=== PATIENT | male | born 1985 | race Two or more races ===

== ENCOUNTER 2020-08-06 18:52 | Emergency (ER) | payer SELFPAY ==
[~2020-08-06] VITALS: Ht 170.2 cm; Wt 99.8 kg
[2020-08-06 19:06] VITALS: BP 117/67
== END 2020-08-06 22:14 | disposition home or self-care (01) ==
LOC: ER 18:56
DX: S00.261A Insect bite (nonvenomous) of right eyelid and periocular area, initial encounter (principal); W57.XXXA Bitten or stung by nonvenomous insect and other nonvenomous arthropods, initial encounter; Y93.89 Activity, other specified; Y92.89 Other specified places as the place of occurrence of the external cause; Y99.8 Other external cause status

== ENCOUNTER 2020-08-12 04:54 | Emergency (ER) | payer SELFPAY ==
[~2020-08-12] VITALS: Ht 170.2 cm; Wt 99.8 kg
[2020-08-12 05:10] VITALS: BP 158/92
== END 2020-08-12 05:49 | disposition home or self-care (01) ==
LOC: ER 04:54
DX: B02.9 Zoster without complications (principal)

== ENCOUNTER 2024-09-06 02:21 | Inpatient (IN) | payer MEDICAID, OTHER ==
[~2024-09-06] VITALS: Ht 172.7 cm; Wt 104.3 kg
[2024-09-06] MEDS: MORPHINE SULFATE 4 MG/ML SYR/VIAL IV ONE (03:29)
[2024-09-06] MEDS: SODIUM CHLORIDE 0.9% 2,000 ML IV ONE (03:29)
[2024-09-06] MEDS: ONDANSETRON HCL 4 MG/2 ML VIAL IV ONE (03:30)
[2024-09-06] MEDS: PANTOPRAZOLE 40 MG/10 ML VIAL INJ IV ONE (03:30)
[2024-09-06 03:36] VITALS: PULSE 116; RESP 16; O2SAT 95
--- NOTE | 2024-09-06 03:36 | DVH ---
Exam: CT CT AB PEL WO CON-NO ORAL OR IV History: upper abd pain n/v Comparison Study: None TECHNIQUE: Multidetector CT of the abdomen and pelvis was performed from lung bases to pubic symphysi s. Imaging was performed without IV contrast. Axial, coronal and sagittal multiplanar reformats were obtained from the axial data set by the technologist. Radiation optimization: All CT scans at this facility use at least one of these dose optimization sage hniques: automated exposure control mA and/or kV adjustment per patient size (includes targeted exam s where dose is matched to clinical indication) or iterative reconstruction. Radiation Dose Information: CT Dose: CTDI volume is 24.64 mGy. Dose-length product is 1417.25 mGy*cm FINDINGS: Evaluation of solid organs is limited due to lack of intravenous contrast use. Imaged portions of the lung bases appear unremarkable. Diffuse hepatic steatosis. Spleen, adrenal glands, and kidneys appear unremarkable. There is edematous appearance of the pancreatic head and proximal body with surrounding fat stranding and fluid. No evidence of pneumatosis or free air. No discrete focal fluid collection. No evidence of bowel obstruction or focal bowel wall thickening. No suspicious osseous lesion. IMPRESSION: 1. Findings consistent with acute pancreatitis.
[2024-09-06] MEDS: HYDROmorphone HCL 2 MG/ML VL/or syr IV ONE (04:16)
--- NOTE | 2024-09-06 04:24 | ED.PDOC ---
History of Present Illness HPI Comments 39-year-old male with history of dyslipidemia and cholecystectomy in June of 2024 brought in by family complaining of upper abdominal pain, nausea and vomiting that started around 1:00 a.m.. He denies any fever, constipation, diarrhea or dysuria. He states the pain is severe, sharp, and radiating to his back. He denies chest pain or shortness a breath. Chief Complaint: Abdominal Pain Time Seen by MD: 04:15 Primary Care Provider: NONE Reviewed Notes: Nurses Notes, Educational Advisor Notes, Medications, Allergies Allergies: Coded Allergies: NO KNOWN ALLERGIES (Unverified , 08/12/20) Information Source: Patient, Emergency Med Personnel Mode of Arrival: EMS Severity: Moderate Timing: Hours Duration: Since onset Prehospital treatment: 12 Lead EKG, Accucheck, Edi Manager, Pain Meds (1g Tylenol ), Other (IV access ) Past Medical History PAST MEDICAL HISTORY: High Lipids Surgical History: Cholecystectomy Family History Family History: Unknown Social History Smoker: Non-Smoker Alcohol: Occasionally Drugs: Denies Drug Use Lives In: Home All Other Systems: Reviewed and Negative (Comprehensive systems review obtained and negative except for what is stated in the HPI.) Physical Exam General Appearance: Moderate Distress, Obese HEENT: Other (Pupils and face symmetric. Moist mucous membranes.) Neck: Full Range of Motion, Normal Inspection Respiratory: Lungs Clear, No Accessory Muscle Use, No Respiratory Distress, Normal Breath Sounds Cardiovascular: No Edema, No JVD, Regular Rate/Rhythm Breast Exam: Deferred Gastrointestinal: Epigastric, Tenderness Genitalia: Deferred Pelvic: Deferred Rectal: Deferred Extremities: Normal inspection, Normal range of motion, Non-tender, No pedal edema Neurologic: Alert (Oriented x4), Normal Affect, Normal Mood, Other (Ambulatory) Cerebellar Function: NOT DONE Reflexes: NOT DONE Skin: Dry, Pallor, Warm Lymphatic: NOT DONE Was a procedure done? Was a procedure done?: No Differential Dx Considerations may include: Gastritis, gastroenteritis, pancreatitis, diverticulitis, appendicitis, UTI, electrolyte imbalance, hypovolemia, ischemic bowel, among others X-Ray, Labs, Meds, VS Vital Signs Date Time Temp Pulse Resp B/P (MAP) Pulse Ox O2 Delivery O2 Flow Rate FiO2 09/06/24 04:16 110 20 165/110 09/06/24 03:36 116 16 95 Room Air* 0 21 09/06/24 03:34 99.1 116 16 166/104 (124) 95 99.1 09/06/24 03:29 116 16 166/104 09/06/24 02:27 99.0 123 20 162/87 (112) 95 99.0 Lab Test 09/06/24 03:15 Range/Units White Blood Count Pending Red Blood Count Pending Hemoglobin Pending Hematocrit Pending Mean Corpuscular Volume Pending Mean Corpuscular Hemoglobin Pending Mean Corpuscular Hemoglobin Concent Pending Red Cell Distribution Width Pending Platelet Count Pending Mean Platelet Volume Pending Neutrophils (%) (Auto) Pending Lymphocytes (%) (Auto) Pending Monocytes (%) (Auto) Pending Basophils (%) (Auto) Pending Neutrophils # (Auto) Pending Lymphocytes # (Auto) Pending Monocytes # (Auto) Pending Sodium Level 137 136-145 mmol/L Potassium Level 3.8 3.5-5.1 mmol/L Chloride Level 101 98-107 mmol/L Carbon Dioxide Level 25 20-31 mmol/L Anion Gap 11 5-15 Blood Urea Nitrogen 10 9-23 mg/dL Creatinine 0.90 0.700-1.30 mg/dL Glomerular Filtration Rate Calc 111 >90 mL/min BUN/Creatinine Ratio 11.1 10.0-20.0 Serum Glucose 161 H 74-106 mg/dL Lactic Acid Level 1.9 0.4-2.0 mmol/L Calcium Level 9.4 8.7-10.4 mg/dL Total Bilirubin 2.0 H 0.2-1.0 mg/dL Aspartate Amino Transferase (AST) 983 H 13-40 U/L Alanine Aminotransferase (ALT) 1190 H 7-40 U/L Alkaline Phosphatase 191 H 46-116 U/L Total Protein 7.8 5.7-8.2 g/dL Albumin 4.8 3.2-4.8 g/dL Lipase > 3500 H 12-53 U/L Current Medications Medications (Trade) Dose Ordered Sig/Miguel Ángel Route Start Time Stop Time Status Last Admin Morphine Sulfate 4 mg ONCE ONCE IV 09/06/24 03:00 09/06/24 03:01 DC 09/06/24 03:29 Ondansetron HCl (Zofran) 4 mg ONCE ONCE IV 09/06/24 03:00 09/06/24 03:01 DC 09/06/24 03:30 Sodium Chloride 2,000 ml @ 1,000 mls/hr Q2H ONCE IV 09/06/24 03:00 09/06/24 04:59 DC 09/06/24 03:29 Pantoprazole Sodium (Protonix) 40 mg ONCE ONCE IV 09/06/24 03:00 09/06/24 03:01 DC 09/06/24 03:30 Hydromorphone HCl (Dilaudid Injection) 1 mg ONCE ONCE IV 09/06/24 04:15 09/06/24 04:16 DC 09/06/24 04:16 [place] [id number] Ph: [phone] DIAGNOSTIC IMAGING Diagnostic Imaging Report : [id number] Signed PATIENT: SCOOBY GUAN ACCT: [id number] UNIT: [id number] : 1985 LOC: ER ROOM / BED: / AGE / SEX: 39 / M ADM STATUS: REG ER SERVICE [id number] ORDERING PHYSICIAN: CHERIE HARRIS MD PROCEDURE(s): ABPL - CT AB PEL WO CON-NO ORAL OR IV REASON: upper abd pain n/v ORDER NUMBER(s): [id number], ACCESSION NUMBER(s): [id number] Exam: CT CT AB PEL WO CON-NO ORAL OR IV History: upper abd pain n/v Comparison Study: None TECHNIQUE: Multidetector CT of the abdomen and pelvis was performed from lung bases to pubic symphysis. Imaging was performed without IV contrast. Axial, coronal and sagittal multiplanar reformats were obtained from the axial data set by the technologist. Radiation optimization: All CT scans at this facility use at least one of these dose optimization techniques: automated exposure control mA and/or kV adjustment per patient size (includes targeted exams where dose is matched to clinical indication) or iterative reconstruction. Radiation Dose Information: CT Dose: CTDI volume is 24.64 mGy. Dose-length product is 1417.25 mGy*cm FINDINGS: Evaluation of solid organs is limited due to lack of intravenous contrast use. Imaged portions of the lung bases appear unremarkable. Diffuse hepatic steatosis. Spleen, adrenal glands, and kidneys appear unremarkable. There is edematous appearance of the pancreatic head and proximal body with surrounding fat stranding and fluid. No evidence of pneumatosis or free air. No discrete focal fluid collection. No evidence of bowel obstruction or focal bowel wall thickening. No suspicious osseous lesion. IMPRESSION: 1. Findings consistent with acute pancreatitis. ATED BY: BRUCE HILL MD DICTATED DATE/TIME: 09/06/24333 SIGNED BY: BRUCE HILL MD SIGNED DATE/TIME: 09/06/24333 CC: X-Ray, Labs, Meds, VS Comment 39-year-old male with a history of dyslipidemia and status post cholecystectomy in June 2024 complaining of upper abdominal pain. Patient states he heavily consumes alcohol on the weekends. Vitals remarkable for heart rate 123, BP 162/87 Exam remarkable for epigastric tenderness to palpation Rhythm strip independently interpreted by me: Sinus tach, rate 123, no ectopy. CT abdomen and pelvis Consistent with acute pancreatitis CBC results pending, CMP remarkable for AST 983, ALT 1190, alkaline phos 191, lipase [place] [id number] Patient treated with the following in the ED: 1 L 0.9 normal saline IV bolus, morphine 4 mg IV, Zofran 4 mg IV, Dilaudid 1 mg IV with partial improvement of his pain. Plan is to admit the patient for GI evaluation. Time of 1ST Reevaluation: 04:45 Reevaluation 1ST: Unchanged Time of 2ND Reevaluation: 05:09 Reevaluation 2ND: Improved Patient Education/Counseling: Diagnosis, Treatment, Other (need for admission ) Family Education/Counseling: No Family Present Departure 1 Departure Time of Disposition: 05:09 Impression: Primary Impression: Acute pancreatitis Qualified Codes: K85.90 - Acute pancreatitis without necrosis or infection, unspecified Disposition: 09 ADMITTED INPATIENT Admit to: Tele Condition: Guarded Critical Care Note Critical Care Time?: No Stability Stability form required: No Heart Score Heart Score: Heart Score Response (Comments) Value History N/A 0 EKG N/A 0 Age N/A 0 Risk Factors N/A 0 Troponin N/A 0 Total 0 I personally scribed for CHERIE HARRIS MD ([email or web address]) on 09/06/24 at 04:24. Electronically submitted by Ean Page ([email or web address]). I personally scribed for CHREIE HARRIS MD ([email or web address]) on 09/06/24 at 04:54. Electronically submitted by Ean Page ([email or web address]). CHERIE HRARIS MD September 06, 2024 04:24
[2024-09-06 04:46] LABS: Anion Gap 11 (5-15); BUN/Creatinine Ratio 11.1 (10.0-20.0); Blood Urea Nitrogen 10 mg/dL (9-23); Carbon Dioxide 25 mmol/L (20-31); Chloride 101 mmol/L (98-107); Glucose 161 mg/dL (74-106); Potassium 3.8 mmol/L (3.5-5.1); Sodium 137 mmol/L (136-145)
[2024-09-06 04:47] LABS: Alanine Aminotransferase 1190 U/L (7-40); Albumin 4.8 g/dL (3.2-4.8); Alkaline Phosphatase 191 U/L (46-116); Aspartate Aminotransferase 983 U/L (13-40); Calcium 9.4 mg/dL (8.7-10.4); Lipase > 3500 U/L (12-53); Total Protein 7.8 g/dL (5.7-8.2)
[2024-09-06 07:47] LABS: Basophils # (auto) 0 10 ^3/uL (0-0.2); Basophils % (auto) 0.1 % (0.0-2.0); Eosinophils # (auto) 0 10 ^3/uL (0-0.8); Hematocrit 47.9 % (41.0-53.0); Hemoglobin 16.4 g/dL (13.5-17.5); Lymphocytes # (auto) 0.4 10 ^3/uL (0.4-5.4); Lymphocytes % (auto) 3.3 % (10.0-50.0); Mean Corpuscular Hemoglobin 29.8 pg (28.0-32.0); Mean Corpuscular Hgb Conc. 34.2 g/dL (32.0-36.0); Mean Corpuscular Volume 87.2 fL (80.0-100.0); Monocytes # (auto) 0.6 10 ^3/uL (0-1.3); Monocytes % (auto) 4.5 % (0.0-12.0); Neutrophils % (auto) 92.1 % (37.0-80.0); Nucleated Red Blood Cells % 0.1 %; Platelet Count (auto) 316 10^3/uL (140-450); Red Blood Cells 5.49 10^6/uL (4.5-5.90); Red Cell Distribution Width 14.9 % (11.8-14.3); White Blood Cell 13.1 10^3/uL (4.4-10.8)
[2024-09-06 07:54] VITALS: PULSE 101; RESP 18; O2SAT 94
[2024-09-06] MEDS ORDERED: ROSU40TA47 PO (07:56)
--- NOTE | 2024-09-06 07:57 | DVHHP2 ---
History of Present Illness Reason for Visit: Abdominal pain with nausea and vomiting History of Present Illness Iraj Nesbitt is a 39-year-old male with past medical history of hyperlipidemia and cholecystectomy who presents to the ED with abdominal pain, nausea, and vomiting that started yesterday. Patient reports that he was at a green party Thursday but believes it is unrelated to his symptoms. Patient reports the abdominal pain 10/10, tight, and constant in nature. He also reports that he was and has been drinking alcohol. He states only as occasionally. Patient denies any chest pain, shortness of breath, fever, chills, lightheadedness, weakness, dizziness, diarrhea, or dysuria. He also reports that he has been noncompliant with his cholesterol medication. Patient reports that he does not use home oxygen however upon examination patient is on nasal cannula. Cardiovascular: hyperipidemia Past Surgical History: Cholecystectomy Family History: Other (Mom ) Smoke: No ALCOHOL: occassional Drugs: None Lives: with Family Domestic Violence: Neg Review of Systems Gastrointestinal: Nausea, Vomiting, Abdominal Pain Allergies: Coded Allergies: NO KNOWN ALLERGIES (Unverified , 08/12/20) Exam Vital Signs Vital Signs Date Time Temp Pulse Resp B/P (MAP) Pulse Ox O2 Delivery O2 Flow Rate FiO2 09/06/24 07:54 98.9 101 18 156/100 (118) 94 98.9 09/06/24 07:54 Nasal Cannula* 4 36 General Appearance: Alert, Oriented X3, Cooperative, mild distress HEENT: Atraumatic, PERRLA, EOMI, Mucous membr. moist/pink Respiratory: Clear to auscultation, Normal air movement Cardiovascular: Normal S1, Normal S2, No murmurs Abdominal: Soft Extremities: No clubbing, No cyanosis, No edema, Normal pulses, No tenderness/swelling Skin: No significant lesion Neuro: Normal speech, Strength at / X4 ext, Normal tone, Sensation intact Psych/Mental Status: Mental status NL, Mood NL Labs/Xrays Labs Test 09/06/24 07:26 09/06/24 03:15 Range/Units White Blood Count 13.1 H 4.4-10.8 10^3/uL Red Blood Count 5.49 4.5-5.90 10^6/uL Hemoglobin 16.4 13.5-17.5 g/dL Hematocrit 47.9 41.0-53.0 % Mean Corpuscular Volume 87.2 80.0-100.0 fL Mean Corpuscular Hemoglobin 29.8 28.0-32.0 pg Mean Corpuscular Hemoglobin Concent 34.2 32.0-36.0 g/dL Red Cell Distribution Width 14.9 H 11.8-14.3 % Platelet Count 316 140-450 10^3/uL Mean Platelet Volume 9.3 6.9-10.8 fL Neutrophils (%) (Auto) 92.1 H 37.0-80.0 % Lymphocytes (%) (Auto) 3.3 L 10.0-50.0 % Monocytes (%) (Auto) 4.5 0.0-12.0 % Eosinophils (%) (Auto) 0.0 0.0-7.0 % Basophils (%) (Auto) 0.1 0.0-2.0 % Neutrophils # (Auto) 12.0 H 1.6-8.6 10 ^3/uL Lymphocytes # (Auto) 0.4 0.4-5.4 10 ^3/uL Monocytes # (Auto) 0.6 0-1.3 10 ^3/uL Eosinophils # (Auto) 0 0-0.8 10 ^3/uL Basophils # (Auto) 0 0-0.2 10 ^3/uL Nucleated Red Blood Cells 0.1 % Sodium Level 137 136-145 mmol/L Potassium Level 3.8 3.5-5.1 mmol/L Chloride Level 101 98-107 mmol/L Carbon Dioxide Level 25 20-31 mmol/L Anion Gap 11 5-15 Blood Urea Nitrogen 10 9-23 mg/dL Creatinine 0.90 0.700-1.30 mg/dL Glomerular Filtration Rate Calc 111 >90 mL/min BUN/Creatinine Ratio 11.1 10.0-20.0 Serum Glucose 161 H 74-106 mg/dL Lactic Acid Level 1.9 0.4-2.0 mmol/L Calcium Level 9.4 8.7-10.4 mg/dL Total Bilirubin 2.0 H 0.2-1.0 mg/dL Aspartate Amino Transferase (AST) 983 H 13-40 U/L Alanine Aminotransferase (ALT) 1190 H 7-40 U/L Alkaline Phosphatase 191 H 46-116 U/L Total Protein 7.8 5.7-8.2 g/dL Albumin 4.8 3.2-4.8 g/dL Lipase > 3500 H 12-53 U/L Exam: CT CT AB PEL WO CON-NO ORAL OR IV History: upper abd pain n/v Comparison Study: None TECHNIQUE: Multidetector CT of the abdomen and pelvis was performed from lung bases to pubic symphysis. Imaging was performed without IV contrast. Axial, coronal and sagittal multiplanar reformats were obtained from the axial data set by the technologist. Radiation optimization: All CT scans at this facility use at least one of these dose optimization techniques: automated exposure control mA and/or kV adjustment per patient size (includes targeted exams where dose is matched to clinical indication) or iterative reconstruction. Radiation Dose Information: CT Dose: CTDI volume is 24.64 mGy. Dose-length product is 1417.25 mGy*cm FINDINGS: Evaluation of solid organs is limited due to lack of intravenous contrast use. Imaged portions of the lung bases appear unremarkable. Diffuse hepatic steatosis. Spleen, adrenal glands, and kidneys appear unremarkable. There is edematous appearance of the pancreatic head and proximal body with surrounding fat stranding and fluid. No evidence of pneumatosis or free air. No discrete focal fluid collection. No evidence of bowel obstruction or focal bowel wall thickening. No suspicious osseous lesion. IMPRESSION: 1. Findings consistent with acute pancreatitis. Assessment/Plan Assessment/Plan Assessment Intractable abdominal pain with nausea and vomiting likely due to acute pancreatitis Leukocytosis likely due to acute pancreatitis Lipasemia Transaminitis Hyperbilirubinemia Morbid obesity Hyperglycemia Alcohol use Acute hypoxic respiratory failure Medication noncompliance History of hyperlipidemia History of cholecystectomy Plan Admit to med surge Supportive oxygen Antiemetics Pain management NS 2 L given ED Lactic level CT abdomen and pelvis noted UA Lipase Hemoglobin A1c ISS and Accu-Cheks UA UDS IV antibiotics-Zosyn Chest x-ray ordered Diet IV fluids DVT prophylaxis-not indicated patient ambulating PUD prophylaxis-PPIs Discussed plan of care with patient and nurse Counseled patient on cessation of alcohol use Counseled patient on lifestyle modifications, diet, and exercise Counseled patient on taking medications as prescribed Discussed plan of care with family at the chair side as well Plan discussed with: Patient My Orders Orders - NADEEN GASTELUM Procedure Category Date Status Time Admit ADMIT 09/06/24 Verified 07:55 Allergies ALFONSO 09/06/24 Verified 07:55 Code Status CODE 09/06/24 Verified 07:55 0.9% Ns 1000 Ml PHA 09/06/24 Verified 08:00 Hydrocodone-Acet PHA 09/06/24 Verified 5/325mg Tab ([place] 08:00 Ondansetron Hcl PHA 09/06/24 Verified (Zofran) 08:00 Complete Blood Count LAB 09/07/24 Verified 04:00 Comprehensive LAB 09/07/24 Verified Metabolic Panel 04:00 Cardiac DIET 09/06/24 Verified Diet-2gna,Lofat,Lochol Breakfast Acetaminophen Tablet PHA 09/06/24 Verified (Tylenol Tablet) 08:00 Morphine Sulfate PHA 09/06/24 Verified Injection 08:00 Sequential ALFONSO 09/06/24 Verified Compression Device Date of Service: September 06, 2024 Billing Provider: NADEEN GASTELUM Common Visit Codes: [id number] INP/OBS CARE (HIGH) NADEEN GASTELUM September 06, 2024 07:57
[2024-09-06] MEDS ORDERED: ACETAMINOPHEN 325 MG TAB PO PRN (08:00)
[2024-09-06] MEDS: SODIUM CHLORIDE 0.9% 1,000 ML IV SCH (08:38)
[2024-09-06] MEDS: ONDANSETRON HCL 4 MG/2 ML VIAL IV PRN (08:38)
[2024-09-06] MEDS: MORPHINE SULFATE INJ 2 MG/ml SYRG IV PRN (08:40)
[2024-09-06] MEDS ORDERED: DEXTROSE (50%) 50ML SYRG IV PRN ×2 (09:15→14:30)
[2024-09-06] MEDS: PANTOPRAZOLE 40 MG/10 ML VIAL INJ IV SCH (09:57)
[2024-09-06] MEDS ORDERED: PATIENTS OWN MEDICATION (Rosuvastatin Calcium 1 TAB) PO SCH (10:00)
--- NOTE | 2024-09-06 10:03 | DVH ---
EXAM: XY CHEST XRAY 1 VIEW Indication: sob Technique: Single frontal view of the chest was obtained Comparison: None FINDINGS: Lines and Tubes: None Lungs: No focal consolidation. Pleura: No effusion. No pneumothorax. Cardiomediastinal contours: Unremarkable Bones: No acute osseous abnormality. IMPRESSION: No acute cardiopulmonary disease.
[2024-09-06 11:07] LABS: Urine Bacteria None Seen /hpf (None Seen)
[2024-09-06 11:20] LABS: Urine Blood Negative /uL (Negative); Urine Clarity Clear (Clear); Urine Color Yellow (Yellow); Urine Mucus FEW (None Seen); Urine Protein, UAD 1+ (Negative); Urine Specific Gravity 1.027 (1.001-1.035); Urine Squamous Epithelial Cell FEW /hpf (<5); Urine Urobilinogen 2 mg/dL (Negative); Urine WBC 1 /HPF (0-3)
[2024-09-06 11:41] LABS: Amphetamine Screen, Urine Neg (NEGATIVE); Barbiturate Scree,Urine Neg (NEGATIVE); Benzodiazephine Screen, Urine Neg (NEGATIVE); Cannabinoid Screen, Urine Neg (NEGATIVE); Cocaine Screen, Urine Neg (NEGATIVE); Opiate Scree,Urine Pos (NEGATIVE); Phencyclidine Screen, Urine Neg (NEGATIVE)
[2024-09-06] MEDS: HYDROcodone-ACET 5/325MG TAB PO PRN (11:51)
[2024-09-06] MEDS: ACCU-CHEK COMFORT CURVE STRIP VI SCH ×2 (12:50→17:16)
[2024-09-06] MEDS: InsuLIN REG 1unit/0.01ml Soln (100units/ml) SC SCH ×2 (12:52→17:15)
[2024-09-06 13:05] VITALS: BP 160/88; PULSE 99; RESP 28; TEMP 99.3; O2SAT 95
[2024-09-06] MEDS: PIPERACILLIN-TAZOB 3.375GM 100 ML IV SCH (13:38)
--- NOTE | 2024-09-06 14:18 | DVHPN2 ---
Subjective 39-year-old male with a history of hyperlipidemia came with abdominal pain for 1 day associated with nausea and vomiting, the pain is in the epigastric area He had consumed heavy alcohol amount over the weekend on Thursday and Thursday then he came the next day Changes from previous H/P or p: Changes Gastrointestinal: Nausea, Vomiting, Abdominal Pain Objective Vitals Vital Signs Date Time Temp Pulse Resp B/P (MAP) Pulse Ox O2 Delivery O2 Flow Rate FiO2 09/06/24 13:05 99.3 99 28 160/88 (112) 95 99.3 09/06/24 07:54 Nasal Cannula* 4 36 Intake/Output Intake and Output 09/06/24 07:00 Intake Total 2000 ml Balance 2000 ml Intake IV Total 2000 ml General Appearance: Alert, Oriented X3, Cooperative Lungs: Clear to auscultation, Normal air movement Cardiovascular: Regular rate, Normal S1, Normal S2, No murmurs Abdomen: Normal bowel sounds, Soft, Other (Severe tenderness in the epigastric area) Extremities: No edema Medications Current Medications Medications Dose Ordered Sig/Miguel Ángel Route Start Time Stop Time Status Last Admin Dose Admin Sodium Chloride 1,000 ml @ 100 mls/hr Q10H IV 09/06/24 08:00 09/06/24 08:38 100 MLS/HR Acetaminophen/ Hydrocodone Bitart 1 tab Q4HP PRN PO 09/06/24 08:00 09/06/24 11:51 1 TAB Ondansetron HCl 4 mg Q4HP PRN IV 09/06/24 08:00 09/06/24 08:38 4 MG Acetaminophen 650 mg Q6HP PRN PO 09/06/24 08:00 Morphine Sulfate 2 mg Q4HPRN PRN IV 09/06/24 08:00 09/06/24 08:40 2 MG Patient Own Medication 1 tab DAILY PO 09/06/24 10:00 UNV Atorvastatin Calcium 80 mg HS PO 09/06/24 22:00 Piperacillin Sod/ Tazobactam Sod 100 ml @ 25 mls/hr Q8HR IV 09/06/24 14:00 09/06/24 13:38 25 MLS/HR Diagnostic Test (Pha) 1 strip ACHS 09/06/24 11:30 09/06/24 12:50 1 STRIP Insulin Human Regular ACHS SC 09/06/24 11:30 09/06/24 12:52 3 UNITS Dextrose 50 ml UD PRN IV 09/06/24 09:15 Pantoprazole Sodium 40 mg DAILY IV 09/06/24 09:30 09/06/24 09:57 40 MG Laboratory Results Laboratory Tests 09/06/24 03:15 09/06/24 07:26 Chemistry Test 09/06/24 03:15 Albumin 4.8 g/dL (3.2-4.8) Calcium Level 9.4 mg/dL (8.7-10.4) Total Protein 7.8 g/dL (5.7-8.2) Lipid panel Test 09/06/24 03:15 Lipase > 3500 U/L (12-53) H LFT Test 09/06/24 03:15 Alanine Aminotransferase (ALT) 1190 U/L (7-40) H Alkaline Phosphatase 191 U/L (46-116) H Aspartate Amino Transferase (AST) 983 U/L (13-40) H Total Bilirubin 2.0 mg/dL (0.2-1.0) H HgA1c, TSH Test 09/06/24 07:26 Hemoglobin A1c 5.1 % A1C (<5.7) Urinalysis Test 09/06/24 10:20 Urine Color Yellow (Yellow) Urine Clarity Clear (Clear) Urine pH 6.0 (5.0-9.0) Urine Specific [place] 1.027 (1.001-1.035) Urine Protein 1+ (Negative) H Urine Ketones Negative (Negative) Urine Blood Negative /uL (Negative) Urine Nitrite Negative (Negative) Urine Bilirubin Negative (Negative) Urine Urobilinogen 2 mg/dL (Negative) H Urine Leukocyte Esterase Negative /uL (Negative) Urine RBC 1 /hpf (0 - 3) Urine Microscopic WBC 1 /HPF (0-3) Urine Squamous Epithelial Cells Few /hpf (<5) Urine Bacteria None seen /hpf (None Seen) Urine Mucus Few (None Seen) Urine Glucose Normal mg/dL (Normal) Assessment/Plan Assessment/Plan Acute alcoholic pancreatitis Acute alcoholic hepatitis History of mixed hyperlipidemia History of cholecystectomy in the past Plan NPO IV fluids Pain control with Dilaudid Zofran as needed IV Pepcid Accu-Cheks q.6 hours and cover as needed Monitor closely The rest of the management will depend on the hospital course Plan discussed with: Patient Date of Service: September 06, 2024 Billing Provider: NELLA GUERRA MD Common Visit Codes: [id number] INP/OBS CARE(HIGH) NELLA GUERRA MD September 06, 2024 14:18
[2024-09-06] MEDS: HYDROmorphone HCL 2 MG/ML VL/or syr IV PRN (16:05)
[2024-09-06 16:27] VITALS: BP 118/114; PULSE 105; PULSE 108; RESP 16; RESP 19; TEMP 98.9; O2SAT 93; O2SAT 94
[2024-09-06 20:00] VITALS: PULSE 107; RESP 17; O2SAT 94
[2024-09-06] MEDS: LACTATED RINGER'S 1,000 ML IV SCH (20:55)
[2024-09-06 21:00] VITALS: BP 160/113; PULSE 111; RESP 19; TEMP 99.6; O2SAT 94
[2024-09-06] MEDS: FAMOTIDINE (10MG/ML) 2ML VL IV SCH (21:27)
[2024-09-06] MEDS ORDERED: ATORVASTATIN 20 MG TAB PO SCH (22:00)
[2024-09-06] MEDS: hydrALAZINE HCL 20 MG/ML VL IV ONE (23:35)
[2024-09-07] VITALS (8 sets, daily range): BP systolic 144–166; BP diastolic 64–96; PULSE 106–131; RESP 16–18; TEMP 97.7–99.9; O2SAT 94–98
[2024-09-07 06:31] LABS: Basophils # (auto) 0 10 ^3/uL (0-0.2); Basophils % (auto) 0.2 % (0.0-2.0); Eosinophils # (auto) 0 10 ^3/uL (0-0.8); Hematocrit 49.7 % (41.0-53.0); Hemoglobin 16.6 g/dL (13.5-17.5); Lymphocytes # (auto) 1.4 10 ^3/uL (0.4-5.4); Lymphocytes % (auto) 9.6 % (10.0-50.0); Mean Corpuscular Hemoglobin 29.2 pg (28.0-32.0); Mean Corpuscular Hgb Conc. 33.4 g/dL (32.0-36.0); Mean Corpuscular Volume 87.5 fL (80.0-100.0); Monocytes # (auto) 0.7 10 ^3/uL (0-1.3); Monocytes % (auto) 5.1 % (0.0-12.0); Neutrophils % (auto) 85.1 % (37.0-80.0); Platelet Count (auto) 308 10^3/uL (140-450); Red Blood Cells 5.68 10^6/uL (4.5-5.90); Red Cell Distribution Width 15.2 % (11.8-14.3); White Blood Cell 14.1 10^3/uL (4.4-10.8)
[2024-09-07 06:45] LABS: Albumin 4.5 g/dL (3.2-4.8); Anion Gap 11 (5-15); BUN/Creatinine Ratio 14.5 (10.0-20.0); Blood Urea Nitrogen 12 mg/dL (9-23); Calcium 8.8 mg/dL (8.7-10.4); Carbon Dioxide 25 mmol/L (20-31); Chloride 101 mmol/L (98-107); Magnesium 2.1 mg/dL (1.6-2.6); Potassium 3.6 mmol/L (3.5-5.1); Sodium 137 mmol/L (136-145); Total Protein 7.6 g/dL (5.7-8.2)
[2024-09-07 06:51] LABS: Alanine Aminotransferase 579 U/L (7-40); Alkaline Phosphatase 137 U/L (46-116); Aspartate Aminotransferase 127 U/L (13-40); Glucose 121 mg/dL (74-106); Lipase 238 U/L (12-53)
[2024-09-07 08:29] LABS: HDL Cholesterol 57 mg/dL (40-59)
[2024-09-07 08:36] LABS: Cholesterol 295 mg/dL (< 200); LDL Cholesterol 218 mg/dL (< 100); Triglycerides 172 mg/dL (< 150)
[2024-09-07] MEDS ORDERED: DEXTROSE (50%) 50ML SYRG IV PRN (11:45)
[2024-09-07] MEDS: HYDROmorphone HCL 2 MG/ML VL/or syr IV PRN (12:35)
[2024-09-07] MEDS: LOSARTAN POTASSIUM 50 MG TAB PO ONE (12:41)
[2024-09-07] MEDS: InsuLIN REG 1unit/0.01ml Soln (100units/ml) SC SCH (17:00)
[2024-09-07] MEDS: ACCU-CHEK COMFORT CURVE STRIP VI SCH (17:00)
[2024-09-07] MEDS: hydrALAZINE HCL 20 MG/ML VL IV PRN (17:22)
--- NOTE | 2024-09-07 21:25 | DVHPN2 ---
Subjective 39-year-old male with a history of hyperlipidemia came with abdominal pain for 1 day associated with nausea and vomiting, the pain is in the epigastric area He had consumed heavy alcohol amount over the weekend on Thursday and Thursday then he came the next day Changes from previous H/P or p: Changes Gastrointestinal: Nausea, Vomiting, Abdominal Pain Objective Vitals Vital Signs Date Time Temp Pulse Resp B/P (MAP) Pulse Ox O2 Delivery O2 Flow Rate FiO2 09/07/24 21:00 98.5 120 18 158/93 (114) 96 98.5 09/07/24 08:00 Room Air* 0 21 Intake/Output Intake and Output 09/07/24 07:00 Intake Total 400 ml Balance 400 ml Intake Oral 0 ml IV Total 400 ml # Voids 4 General Appearance: Alert, Oriented X3, Cooperative Lungs: Clear to auscultation, Normal air movement Cardiovascular: Regular rate, Normal S1, Normal S2, No murmurs Abdomen: Normal bowel sounds, Soft, Other (Severe tenderness in the epigastric area) Extremities: No edema Medications Current Medications Medications Dose Ordered Sig/Miguel Ángel Route Start Time Stop Time Status Last Admin Dose Admin Ondansetron HCl 4 mg Q4HP PRN IV 09/06/24 08:00 09/06/24 08:38 4 MG Patient Own Medication 1 tab DAILY PO 09/06/24 10:00 UNV Lactated Ringer's 1,000 ml @ 150 mls/hr Q6H40M IV 09/06/24 14:15 09/07/24 17:28 150 MLS/HR Famotidine 20 mg Q12HR IV 09/06/24 22:00 09/07/24 08:30 20 MG Hydromorphone HCl 0.5 mg Q4HPRN PRN IV 09/06/24 14:15 09/07/24 08:32 0.5 MG Hydromorphone HCl 1 mg Q4HPRN PRN IV 09/07/24 11:45 09/07/24 17:23 1 MG Hydralazine HCl 10 mg Q6HP PRN IV 09/07/24 11:45 09/07/24 17:22 10 MG Losartan Potassium 50 mg DAILY PO 09/08/24 10:00 Diagnostic Test (Pha) 1 strip ACHS 09/07/24 17:00 Insulin Human Regular ACHS SC 09/07/24 17:00 Dextrose 50 ml UD PRN IV 09/07/24 11:45 Laboratory Results Laboratory Tests 09/07/24 04:40 Chemistry Test 09/07/24 04:40 Albumin 4.5 g/dL (3.2-4.8) Calcium Level 8.8 mg/dL (8.7-10.4) Magnesium Level 2.1 mg/dL (1.6-2.6) Total Protein 7.6 g/dL (5.7-8.2) Lipid panel Test 09/07/24 04:40 Cholesterol Level 295 mg/dL (< 200) H HDL Cholesterol 57 mg/dL (40-59) Lipase 238 U/L (12-53) H Triglycerides Level 172 mg/dL (< 150) H LFT Test 09/07/24 04:40 Alanine Aminotransferase (ALT) 579 U/L (7-40) H Alkaline Phosphatase 137 U/L (46-116) H Aspartate Amino Transferase (AST) 127 U/L (13-40) H Total Bilirubin 1.0 mg/dL (0.2-1.0) HgA1c, TSH Test 09/07/24 04:40 Thyroid Stimulating Hormone (TSH) 1.66 uIU/mL (0.55-4.78) Urinalysis Test 09/06/24 10:20 Urine Color Yellow (Yellow) Urine Clarity Clear (Clear) Urine pH 6.0 (5.0-9.0) Urine Specific [place] 1.027 (1.001-1.035) Urine Protein 1+ (Negative) H Urine Ketones Negative (Negative) Urine Blood Negative /uL (Negative) Urine Nitrite Negative (Negative) Urine Bilirubin Negative (Negative) Urine Urobilinogen 2 mg/dL (Negative) H Urine Leukocyte Esterase Negative /uL (Negative) Urine RBC 1 /hpf (0 - 3) Urine Microscopic WBC 1 /HPF (0-3) Urine Squamous Epithelial Cells Few /hpf (<5) Urine Bacteria None seen /hpf (None Seen) Urine Mucus Few (None Seen) Urine Glucose Normal mg/dL (Normal) Assessment/Plan Assessment/Plan Acute alcoholic pancreatitis Acute alcoholic hepatitis History of mixed hyperlipidemia History of cholecystectomy in the past HTN Mixed hyperlipidemia Plan NPO IV fluids Pain control with Dilaudid Zofran as needed IV Pepcid Accu-Cheks q.6 hours and cover as needed Monitor closely The rest of the management will depend on the hospital course 09/07/24: Continue IV fluids Pain control HTN: Start Losartan, IV hydralazine Clear liquids Plan discussed with: Patient My Orders Orders - NELLA GUERRA MD Procedure Category Date Status Time Clear Liq Diet DIET 09/07/24 Transmitted Lunch Hydromorphone PHA 09/07/24 In Process Injection (Dilaudid 11:45 Hydralazine Injection PHA 09/07/24 In Process (Apresoline Inject 11:45 Losartan Tablet PHA 09/08/24 In Process (Cozaar Tablet) 10:00 Comprehensive LAB 09/08/24 Verified Metabolic Panel 04:00 Complete Blood Count LAB 09/08/24 Verified 04:00 Magnesium LAB 09/08/24 Verified 04:00 Lipase LAB 09/08/24 Verified 04:00 Glucose Blood PHA 09/07/24 In Process (Accu-Chek Comfort 17:00 Insulin R (Human) PHA 09/07/24 In Process (Insulin R) 17:00 Dextrose 50% Syringe PHA 09/07/24 In Process 11:45 Lactated Ringers Lr PHA 09/07/24 Transmitted 21:30 Date of Service: September 07, 2024 Billing Provider: NELLA GUERRA MD Common Visit Codes: [id number] INP/OBS CARE(HIGH) NELLA GUERRA MD September 07, 2024 21:25
[2024-09-07] MEDS: LACTATED RINGER'S 1,000 ML IV SCH (21:30)
[2024-09-08] VITALS (7 sets, daily range): BP systolic 117–146; BP diastolic 61–86; PULSE 103–116; RESP 16–18; TEMP 98–99.8; O2SAT 92–94
[2024-09-08 07:12] LABS: Albumin 4.3 g/dL (3.2-4.8); Alkaline Phosphatase 103 U/L (46-116); Anion Gap 10 (5-15); BUN/Creatinine Ratio 12.3 (10.0-20.0); Carbon Dioxide 24 mmol/L (20-31); Glucose 104 mg/dL (74-106); Magnesium 2.2 mg/dL (1.6-2.6); Potassium 3.6 mmol/L (3.5-5.1); Total Protein 7.4 g/dL (5.7-8.2)
[2024-09-08 07:13] LABS: Bilirubin, Total 1.1 mg/dL (0.2-1.0)
[2024-09-08 07:15] LABS: Basophils # (auto) 0 10 ^3/uL (0-0.2); Basophils % (auto) 0.2 % (0.0-2.0); Eosinophils # (auto) 0 10 ^3/uL (0-0.8); Eosinophils % (auto) 0.2 % (0.0-7.0); Hematocrit 45.9 % (41.0-53.0); Hemoglobin 15.2 g/dL (13.5-17.5); Lymphocytes # (auto) 1.7 10 ^3/uL (0.4-5.4); Lymphocytes % (auto) 10.3 % (10.0-50.0); Mean Corpuscular Hemoglobin 29.1 pg (28.0-32.0); Mean Corpuscular Hgb Conc. 33.2 g/dL (32.0-36.0); Mean Corpuscular Volume 87.7 fL (80.0-100.0); Monocytes % (auto) 6.3 % (0.0-12.0); Neutrophils # (auto) 13.4 10 ^3/uL (1.6-8.6); Platelet Count (auto) 277 10^3/uL (140-450); Red Blood Cells 5.23 10^6/uL (4.5-5.90); Red Cell Distribution Width 14.9 % (11.8-14.3); White Blood Cell 16.2 10^3/uL (4.4-10.8)
[2024-09-08 07:34] LABS: Alanine Aminotransferase 320 U/L (7-40); Aspartate Aminotransferase 44 U/L (13-40); Blood Urea Nitrogen 9 mg/dL (9-23); Calcium 8.7 mg/dL (8.7-10.4); Chloride 97 mmol/L (98-107); Lipase 90 U/L (12-53); Sodium 131 mmol/L (136-145)
[2024-09-08] MEDS: LOSARTAN POTASSIUM 50 MG TAB PO SCH (09:21)
--- NOTE | 2024-09-08 10:03 | DVHPN2 ---
Subjective He is better Less pain and no nausea or vomiting Lipase is better and liver enzymes are improving Changes from previous H/P or p: Changes Gastrointestinal: Nausea, Vomiting, Abdominal Pain Objective Vitals Vital Signs Date Time Temp Pulse Resp B/P (MAP) Pulse Ox O2 Delivery O2 Flow Rate FiO2 09/08/24 09:26 110 19 134/76 09/08/24 08:06 Room Air* 0 21 09/08/24 05:00 98.8 92 98.8 Intake/Output Intake and Output 09/08/24 07:00 Intake Total 2270 ml Output Total 800 ml Balance 1470 ml Intake Oral 1270 ml IV Total 1000 ml Output Urine Total 800 ml # Voids 2 General Appearance: Alert, Oriented X3, Cooperative Lungs: Clear to auscultation, Normal air movement Cardiovascular: Regular rate, Normal S1, Normal S2, No murmurs Abdomen: Normal bowel sounds, Soft, Other (Severe tenderness in the epigastric area) Extremities: No edema Medications Current Medications Medications Dose Ordered Sig/Miguel Ángel Route Start Time Stop Time Status Last Admin Dose Admin Ondansetron HCl 4 mg Q4HP PRN IV 09/06/24 08:00 09/06/24 08:38 4 MG Patient Own Medication 1 tab DAILY PO 09/06/24 10:00 UNV Famotidine 20 mg Q12HR IV 09/06/24 22:00 09/08/24 09:22 20 MG Hydromorphone HCl 0.5 mg Q4HPRN PRN IV 09/06/24 14:15 09/08/24 09:26 0.5 MG Hydromorphone HCl 1 mg Q4HPRN PRN IV 09/07/24 11:45 09/07/24 17:23 1 MG Hydralazine HCl 10 mg Q6HP PRN IV 09/07/24 11:45 09/07/24 17:22 10 MG Losartan Potassium 50 mg DAILY PO 09/08/24 10:00 09/08/24 09:21 50 MG Diagnostic Test (Pha) 1 strip ACHS 09/07/24 17:00 09/08/24 05:52 1 STRIP Insulin Human Regular ACHS SC 09/07/24 17:00 Dextrose 50 ml UD PRN IV 09/07/24 11:45 Lactated Ringer's 1,000 ml @ 100 mls/hr Q10H IV 09/07/24 21:30 09/08/24 08:08 100 MLS/HR Laboratory Results Laboratory Tests 09/08/24 06:33 Chemistry Test 09/08/24 06:33 Albumin 4.3 g/dL (3.2-4.8) Calcium Level 8.7 mg/dL (8.7-10.4) Magnesium Level 2.2 mg/dL (1.6-2.6) Total Protein 7.4 g/dL (5.7-8.2) Lipid panel Test 09/08/24 06:33 Lipase 90 U/L (12-53) H LFT Test 09/08/24 06:33 Alanine Aminotransferase (ALT) 320 U/L (7-40) H Alkaline Phosphatase 103 U/L (46-116) Aspartate Amino Transferase (AST) 44 U/L (13-40) H Total Bilirubin 1.1 mg/dL (0.2-1.0) H Urinalysis Test 09/06/24 10:20 Urine Color Yellow (Yellow) Urine Clarity Clear (Clear) Urine pH 6.0 (5.0-9.0) Urine Specific [place] 1.027 (1.001-1.035) Urine Protein 1+ (Negative) H Urine Ketones Negative (Negative) Urine Blood Negative /uL (Negative) Urine Nitrite Negative (Negative) Urine Bilirubin Negative (Negative) Urine Urobilinogen 2 mg/dL (Negative) H Urine Leukocyte Esterase Negative /uL (Negative) Urine RBC 1 /hpf (0 - 3) Urine Microscopic WBC 1 /HPF (0-3) Urine Squamous Epithelial Cells Few /hpf (<5) Urine Bacteria None seen /hpf (None Seen) Urine Mucus Few (None Seen) Urine Glucose Normal mg/dL (Normal) Assessment/Plan Assessment/Plan Acute alcoholic pancreatitis Acute alcoholic hepatitis History of mixed hyperlipidemia History of cholecystectomy in the past HTN Mixed hyperlipidemia Plan NPO IV fluids Pain control with Dilaudid Zofran as needed IV Pepcid Accu-Cheks q.6 hours and cover as needed Monitor closely The rest of the management will depend on the hospital course 09/07/24: Continue IV fluids Pain control HTN: Start Losartan, IV hydralazine Clear liquids 09/08/2024: Continue IV fluids Pain control Clear liquid diet Monitor closely Plan discussed with: Patient My Orders Orders - NELLA GUERRA MD Procedure Category Date Status Time Clear Liq Diet DIET 09/07/24 Transmitted Lunch Hydromorphone PHA 09/07/24 In Process Injection (Dilaudid 11:45 Hydralazine Injection PHA 09/07/24 In Process (Apresoline Inject 11:45 Losartan Tablet PHA 09/08/24 In Process (Cozaar Tablet) 10:00 Glucose Blood PHA 09/07/24 In Process (Accu-Chek Comfort 17:00 Insulin R (Human) PHA 09/07/24 In Process (Insulin R) 17:00 Dextrose 50% Syringe PHA 09/07/24 In Process 11:45 Lactated Ringer's PHA 09/07/24 In Process 21:30 Date of Service: September 08, 2024 Billing Provider: NELLA GUERRA MD Common Visit Codes: [id number] INP/OBS CARE(HIGH) NELLA GUERRA MD September 08, 2024 10:03
[2024-09-09 01:00] VITALS: BP 129/70; PULSE 93; RESP 18; TEMP 97.7; O2SAT 95
[2024-09-09 05:00] VITALS: BP 112/64; PULSE 99; RESP 18; TEMP 98.7; O2SAT 100
[2024-09-09 06:24] LABS: Albumin 4.2 g/dL (3.2-4.8); Anion Gap 10 (5-15); Aspartate Aminotransferase 28 U/L (13-40); BUN/Creatinine Ratio 15.4 (10.0-20.0); Blood Urea Nitrogen 10 mg/dL (9-23); Carbon Dioxide 26 mmol/L (20-31); Chloride 99 mmol/L (98-107); Glucose 89 mg/dL (74-106); Magnesium 2.3 mg/dL (1.6-2.6); Total Protein 7.1 g/dL (5.7-8.2)
[2024-09-09 06:27] LABS: Alanine Aminotransferase 217 U/L (7-40); Alkaline Phosphatase 120 U/L (46-116); Calcium 8.6 mg/dL (8.7-10.4); Lipase 74 U/L (12-53); Potassium 3.3 mmol/L (3.5-5.1); Sodium 135 mmol/L (136-145)
[2024-09-09 08:30] VITALS: BP 131/88; PULSE 91; RESP 16; TEMP 98.3; O2SAT 94
[2024-09-09] MEDS: POTASSIUM CHL 20 Meq TABLET PO ONE (11:35)
--- NOTE | 2024-09-09 12:16 | DVHDS2 ---
Discharge Summary Date of Admission September 06, 2024 at 07:55 Date of Discharge: September 09, 2024 Labs/Diagnostic Data: Laboratory Results Test 09/09/24 11:10 09/09/24 04:45 09/08/24 06:33 09/07/24 04:40 POC Glucose 92 mg/dl (70-106) Sodium Level 135 mmol/L (136-145) Potassium Level 3.3 mmol/L (3.5-5.1) Chloride Level 99 mmol/L (98-107) Carbon Dioxide Level 26 mmol/L (20-31) Anion Gap 10 (5-15) Blood Urea Nitrogen 10 mg/dL (9-23) Creatinine 0.65 mg/dL (0.700-1.30) Glomerular Filtration Rate Calc 123 mL/min (>90) BUN/Creatinine Ratio 15.4 (10.0-20.0) Serum Glucose 89 mg/dL (74-106) Calcium Level 8.6 mg/dL (8.7-10.4) Magnesium Level 2.3 mg/dL (1.6-2.6) Total Bilirubin 1.0 mg/dL (0.2-1.0) Aspartate Amino Transferase (AST) 28 U/L (13-40) Alanine Aminotransferase (ALT) 217 U/L (7-40) Alkaline Phosphatase 120 U/L (46-116) Total Protein 7.1 g/dL (5.7-8.2) Albumin 4.2 g/dL (3.2-4.8) Lipase 74 U/L (12-53) White Blood Count 16.2 10^3/uL (4.4-10.8) Red Blood Count 5.23 10^6/uL (4.5-5.90) Hemoglobin 15.2 g/dL (13.5-17.5) Hematocrit 45.9 % (41.0-53.0) Mean Corpuscular Volume 87.7 fL (80.0-100.0) Mean Corpuscular Hemoglobin 29.1 pg (28.0-32.0) Mean Corpuscular Hemoglobin Concent 33.2 g/dL (32.0-36.0) Red Cell Distribution Width 14.9 % (11.8-14.3) Platelet Count 277 10^3/uL (140-450) Mean Platelet Volume 9.1 fL (6.9-10.8) Neutrophils (%) (Auto) 83.0 % (37.0-80.0) Lymphocytes (%) (Auto) 10.3 % (10.0-50.0) Monocytes (%) (Auto) 6.3 % (0.0-12.0) Eosinophils (%) (Auto) 0.2 % (0.0-7.0) Basophils (%) (Auto) 0.2 % (0.0-2.0) Neutrophils # (Auto) 13.4 10 ^3/uL (1.6-8.6) Lymphocytes # (Auto) 1.7 10 ^3/uL (0.4-5.4) Monocytes # (Auto) 1.0 10 ^3/uL (0-1.3) Eosinophils # (Auto) 0 10 ^3/uL (0-0.8) Basophils # (Auto) 0 10 ^3/uL (0-0.2) Nucleated Red Blood Cells 0.0 % Triglycerides Level 172 mg/dL (< 150) Cholesterol Level 295 mg/dL (< 200) LDL Cholesterol 218 mg/dL (< 100) HDL Cholesterol 57 mg/dL (40-59) Thyroid Stimulating Hormone (TSH) 1.66 uIU/mL (0.55-4.78) Test 09/06/24 10:20 09/06/24 07:26 09/06/24 03:15 Urine Color Yellow (Yellow) Urine Clarity Clear (Clear) Urine pH 6.0 (5.0-9.0) Urine Specific [place] 1.027 (1.001-1.035) Urine Protein 1+ (Negative) Urine Ketones Negative (Negative) Urine Blood Negative /uL (Negative) Urine Nitrite Negative (Negative) Urine Bilirubin Negative (Negative) Urine Urobilinogen 2 mg/dL (Negative) Urine Leukocyte Esterase Negative /uL (Negative) Urine RBC 1 /hpf (0 - 3) Urine Microscopic WBC 1 /HPF (0-3) Urine Squamous Epithelial Cells Few /hpf (<5) Urine Bacteria None seen /hpf (None Seen) Urine Mucus Few (None Seen) Urine Glucose Normal mg/dL (Normal) Urine Opiates Screen Pos (NEGATIVE) Urine Fentanyl Screen Neg (NEGATIVE) Urine Barbiturates Screen Neg (NEGATIVE) Urine Phencyclidine Screen Neg (NEGATIVE) Urine Amphetamines Screen Neg (NEGATIVE) Urine Benzodiazepines Screen Neg (NEGATIVE) Urine Cocaine Screen Neg (NEGATIVE) Urine Cannabinoids Screen Neg (NEGATIVE) Hemoglobin A1c 5.1 % A1C (<5.7) Lactic Acid Level 1.9 mmol/L (0.4-2.0) Other Laboratory Tests 09/09/24 04:45 09/08/24 06:33 Brief Hx & Hospital Course: Final diagnoses: Acute alcoholic pancreatitis Acute alcoholic hepatitis History of mixed hyperlipidemia History of cholecystectomy in the past Possible HTN Mixed hyperlipidemia Morbid obesity 39-year-old male was admitted due abdominal pain and was found to have alcoholic pancreatitis and hepatitis He was kept NPO and was given IV fluids and pain management and he did well Liver enzymes and lipase are coming down and he is be feeling better Less pain now He is tolerating clear liquid diet, advance to full liquids now Discharged home Advance diet at home as tolerated His cholesterol panel was high with an LDL of 218 He was educated about diet and exercise and losing weight Follow up with his primary care physician as soon as possible He takes Crestor at home which should be held for about a week and then resume Blood pressure has stabilized now so we will not give him any blood pressure medications for now Hemoglobin A1c is normal Condition at Discharge: Stable Final Diagnosis/Problems List Acute alcoholic pancreatitis Acute alcoholic hepatitis History of mixed hyperlipidemia History of cholecystectomy in the past Possible HTN Mixed hyperlipidemia Morbid obesity Discharge Disposition: Home SNF Discharge Will this Physician continue t: No Discharge Instruct/Medications Diet: See Comment Diet comment: Advance as tolerated to low-fat low-cholesterol diet Activity: Light activity Follow Up/Referral: PCP as soon as possible Medications: No new medication Hold Crestor for 1 week then resume Discharge Statement: "Patient was advised to return to the ER or call 911 if any headaches, dizziness, shortness of breath, chest pain, abdominal pain, bleeding, fevers, or worsening of medical condition. Patient was counseled about treatment plan, medications, possible side effects, patientverbalized understanding. All questions were answered to the best of my ability. This discharge took greater then 30 minutes in planning, reviewing documentation, counseling the patient, and discussing with other team members." ASSESSMENT ASSESSMENT Assessment Acute alcoholic pancreatitis Acute alcoholic hepatitis History of mixed hyperlipidemia History of cholecystectomy in the past Possible HTN Mixed hyperlipidemia Morbid obesity Date of Service: September 09, 2024 Billing Provider: NELLA GUERRA MD Common Visit Codes: [id number] DISCH DAY >30min NELLA GUERRA MD September 09, 2024 12:16
[2024-09-09 12:49] VITALS: BP 150/74; PULSE 77; RESP 17; TEMP 98.7; O2SAT 93
[2024-09-09 17:01] VITALS: BP 129/67; PULSE 88; RESP 16; TEMP 98.3; O2SAT 94
[2024-09-09 21:00] VITALS: BP 136/73; PULSE 95; RESP 18; TEMP 97.5; O2SAT 95
[2024-09-10 01:00] VITALS: BP 108/54; PULSE 78; RESP 18; TEMP 97.8; O2SAT 96
[2024-09-10 05:00] VITALS: BP 124/82; PULSE 91; RESP 18; TEMP 98.1; O2SAT 95
[2024-09-10 08:30] VITALS: BP 128/80; PULSE 87; RESP 16; TEMP 98.5; O2SAT 95
[2024-09-10 12:00] VITALS: BP 129/76; PULSE 74; RESP 16; TEMP 98.4; O2SAT 95
[2024-09-10] MEDS ORDERED: TRAM-626 PO ×2 (12:21→12:22)
--- NOTE | 2024-09-10 17:04 | DVHPN2 ---
Subjective He was supposed to go home yesterday however after we discharged him he said he was having more pain and was not comfortable going home and therefore he was kept overnight This morning he says he feels much better He is tolerating his diet better Minimal abdominal pain Changes from previous H/P or p: Changes Gastrointestinal: Nausea, Vomiting, Abdominal Pain Objective Vitals Vital Signs Date Time Temp Pulse Resp B/P (MAP) Pulse Ox O2 Delivery O2 Flow Rate FiO2 09/10/24 12:00 98.4 74 16 129/76 (93) 95 98.4 09/10/24 07:40 Room Air* 0 21 Intake/Output Intake and Output 09/10/24 07:00 Intake Total 2850 ml Output Total 2 ml Balance 2848 ml Intake Oral 1600 ml IV Total 1250 ml Stool Total 2 ml # Voids 13 General Appearance: Alert, Oriented X3, Cooperative Lungs: Clear to auscultation, Normal air movement Cardiovascular: Regular rate, Normal S1, Normal S2, No murmurs Abdomen: Normal bowel sounds, Soft, Other (Severe tenderness in the epigastric area) Extremities: No edema Medications Current Medications Medications Dose Ordered Sig/Miguel Ángel Route Start Time Stop Time Status Last Admin Dose Admin Patient Own Medication 1 tab DAILY PO 09/06/24 10:00 UNV Laboratory Results Laboratory Tests 09/08/24 06:33 09/09/24 04:45 Urinalysis Test 09/06/24 10:20 Urine Color Yellow (Yellow) Urine Clarity Clear (Clear) Urine pH 6.0 (5.0-9.0) Urine Specific [place] 1.027 (1.001-1.035) Urine Protein 1+ (Negative) H Urine Ketones Negative (Negative) Urine Blood Negative /uL (Negative) Urine Nitrite Negative (Negative) Urine Bilirubin Negative (Negative) Urine Urobilinogen 2 mg/dL (Negative) H Urine Leukocyte Esterase Negative /uL (Negative) Urine RBC 1 /hpf (0 - 3) Urine Microscopic WBC 1 /HPF (0-3) Urine Squamous Epithelial Cells Few /hpf (<5) Urine Bacteria None seen /hpf (None Seen) Urine Mucus Few (None Seen) Urine Glucose Normal mg/dL (Normal) Assessment/Plan Assessment/Plan Acute alcoholic pancreatitis Acute alcoholic hepatitis History of mixed hyperlipidemia History of cholecystectomy in the past HTN Mixed hyperlipidemia Plan NPO IV fluids Pain control with Dilaudid Zofran as needed IV Pepcid Accu-Cheks q.6 hours and cover as needed Monitor closely The rest of the management will depend on the hospital course 09/07/24: Continue IV fluids Pain control HTN: Start Losartan, IV hydralazine Clear liquids 09/08/2024: Continue IV fluids Pain control Clear liquid diet Monitor closely 09/10/2024: Discharge the patient home Tramadol p.r.n. for the pain Advance his diet slowly as tolerated Stay on low-fat diet Follow up with the primary care physician as soon as possible Plan discussed with: Patient My Orders Orders - NELLA GUERRA MD Procedure Category Date Status Time Discharge DISCHARGE 09/10/24 Transmitted 12:23 Date of Service: September 10, 2024 Billing Provider: NELLA GUERRA MD Common Visit Codes: [id number] INP/OBS CARE(HIGH) NELLA GUERRA MD September 10, 2024 17:04
== END 2024-09-10 13:15 | disposition home or self-care (01) | DRG 432 ==
LOC: EDBD 02:21 → ER 02:24 → OVERFLOW 07:55 → WEST WING 14:54
PROVIDERS: ADMIT Internal Medicine Geriatric Medicine; ATTEND Internal Medicine Geriatric Medicine
DX: K70.10 Alcoholic hepatitis without ascites (principal); J96.01 Acute respiratory failure with hypoxia; K85.20 Alcohol induced acute pancreatitis without necrosis or infection; E66.01 Morbid (severe) obesity due to excess calories; R73.9 Hyperglycemia, unspecified; F10.90 Alcohol use, unspecified, uncomplicated; E78.2 Mixed hyperlipidemia; I10 Essential (primary) hypertension; Z68.35 Body mass index [BMI] 35.0-35.9, adult; Z79.899 Other long term (current) drug therapy; Z90.49 Acquired absence of other specified parts of digestive tract; Z91.148 Patient's other noncompliance with medication regimen for other reason; Y90.9 Presence of alcohol in blood, level not specified
CPT/HCPCS: 36415; 71045; 74176; 80053; 80061; 80307; 81001; 82962; 83036; 83605; 83690; 83735; 84443; 85025; 96361; 96374; 96375; G0378; J1815; J2405; J2470; J2543; J3490